=== PATIENT | male | born 1965 | race Caucasian/White ===

== ENCOUNTER 2019-04-20 16:47 | Inpatient (IN) ==
[2019-04-20] MEDS ORDERED: 0.9 % Sodium Chloride 1,000 ML IVC ONE (16:53)
[2019-04-20] MEDS ORDERED: Pantoprazole 40 MG VIAL IVP ONE (16:53)
[2019-04-20] MEDS ORDERED: *HR* LORazepam 2 MG/ML VIAL IVP ONE ×2 (17:06→18:40)
[2019-04-20] MEDS ORDERED: *HR* LORazepam 2 MG/ML VIAL ONE (17:06)
[2019-04-20 17:19] LABS: Basophils % 0.2 %; Eosinophils % 0.1 %; Hematocrit 30.5 % (37.5-50.1); Hemoglobin 10.6 g/dL (12.9-16.9); Immature Granulocytes % 1.2 % (0-4); Lymphocytes # 1.5 K/mcL (0.6-4.6); Lymphocytes % 11.4 %; Mean Corpuscular HGB Conc 34.8 g/dL (31.6-35.5); Mean Corpuscular Hemoglobin 28.8 pg (28.0-33.3); Mean Corpuscular Volume 82.9 fL (83.0-100.0); Mean Platelet Volume 10.8 fL (9.4-12.4); Monocytes # 1.4 K/mcL (0.0-1.3); Monocytes % 10.3 %; Neutrophils # 10.3 K/mcL (1.6-8.9); Platelet Count 214 K/mcL (140-400); Red Blood Count 3.68 M/mcL (4.19-5.50); Red Cell Distribution Width 12.3 % (11.5-14.5); Segmented Neutrophils % 76.8 %; White Blood Count 13.4 K/mcL (4.3-11.1)
[2019-04-20 17:20] LABS: INR 1.1; Prothrombin Time 12.2 Seconds (9.4-12.1)
[2019-04-20 17:23] LABS: Activated Partial Thrombo Time 26.6 Seconds (26.0-36.0)
[2019-04-20 17:36] LABS: Acetaminophen < 10 mcg/mL (10-20); BUN/Creatinine Ratio 15 (6-26); Blood Urea Nitrogen 10 mg/dL (6-20); Calcium 8.2 mg/dL (8.6-10.3); Carbon Dioxide 27 mEq/L (23-29); Chloride 83 mEq/L (98-107); Ethanol < 10 mg/dL (Less than 10); Glucose 122 mg/dL (70-105); Lipase 30 Units/L (11-82); Magnesium 1.7 mg/dL (1.6-2.6); Osmolality,Calculated 252 (280-300); Potassium 2.9 mEq/L (3.5-5.1); Salicylate < 2.5 mg/dL (15.0-30.0); Sodium 121 mEq/L (136-145); Troponin I < 0.03 ng/mL (< 0.04); eGFR For African Americans > 60 (> 60); eGFR For Non-African Americans > 60 (> 60)
[2019-04-20 19:01] LABS: Amphetamine Screen,Urine Negative ng/mL (Cutoff=1000); Barbiturate Screen,Urine Negative ng/mL (Cutoff=200); Benzodiazepines Screen,Urine Negative ng/mL (Cutoff=200); Cannabinoid Screen,Urine Negative ng/mL (Cutoff = 50); Cocaine Screen,Urine Negative ng/mL (Cutoff= 300); Opiate Screen,Urine Negative ng/mL (Cutoff=300); Phencyclidine Screen,Urine Negative ng/mL (Cutoff=25)
[2019-04-20] MEDS ORDERED: MetroNIDAZOLE 500 MG/100 ML 500 MG/100 ML BAG IVPB ONE (19:13)
[2019-04-20 20:13] LABS: Bilirubin,Urine Negative (Negative); Blood,Urine Negative (Negative); Clarity,Urine Clear (Clear); Color,Urine Yellow (Yellow); Glucose,Urine (UA) Normal (Normal); Ketones,Urine Negative (Negative); Leukocyte Esterase,Urine Negative (Negative); Nitrite,Urine Negative (Negative); Protein,Urine Negative (Neg-Trace); Specific Gravity,Urine 1.006 (1.010-1.025); Urobilinogen,Urine Normal (Normal)
[2019-04-20] MEDS ORDERED: Naloxone 0.4 MG/ML INJ IVP PRN (22:22)
[2019-04-20] MEDS ORDERED: *HR* LORazepam 2 MG/ML VIAL IVP PRN (22:25)
[2019-04-20 22:52] LABS: BUN/Creatinine Ratio 9 (6-26); Blood Urea Nitrogen 7 mg/dL (6-20); Calcium 7.7 mg/dL (8.6-10.3); Carbon Dioxide 26 mEq/L (23-29); Chloride 92 mEq/L (98-107); Glucose 118 mg/dL (70-105); Osmolality,Calculated 263 (280-300); Potassium 2.8 mEq/L (3.5-5.1); Sodium 127 mEq/L (136-145); eGFR For African Americans > 60 (> 60); eGFR For Non-African Americans > 60 (> 60)
[2019-04-20] MEDS ORDERED: D5% in Water 1,000 ML IVC SCH (23:15)
[2019-04-20] MEDS ORDERED: Potassium Chloride 40 MEQ, Lidocaine 1% 2 ML in 0.9 % Sodium Chloride 500 ML IVPB ONE (23:30)
[2019-04-21] MEDS: MetroNIDAZOLE 500 MG/100 ML 500 MG/100 ML BAG IVPB SCH ×3 (04:50→20:18)
[2019-04-21] MEDS: Pantoprazole 40 MG VIAL IVP SCH ×2 (05:47→18:13)
[2019-04-21 06:14] LABS: Hematocrit 27.9 % (37.5-50.1); Hemoglobin 9.7 g/dL (12.9-16.9); Mean Corpuscular HGB Conc 34.8 g/dL (31.6-35.5); Mean Corpuscular Hemoglobin 29.2 pg (28.0-33.3); Platelet Count 178 K/mcL (140-400); Red Blood Count 3.32 M/mcL (4.19-5.50); Red Cell Distribution Width 12.5 % (11.5-14.5); White Blood Count 6.1 K/mcL (4.3-11.1)
[2019-04-21 06:24] LABS: Alanine Aminotransferase 131 Units/L (7-52); Albumin 3.4 g/dL (3.5-5.7); Albumin/Globulin Ratio 1.6 (1.1-2.2); Alkaline Phosphatase 49 Units/L (34-104); Aspartate Amino Transferase 113 Units/L (13-39); BUN/Creatinine Ratio 7 (6-26); Bilirubin,Total 0.9 mg/dL (0.3-1.0); Blood Urea Nitrogen 6 mg/dL (6-20); Calcium 8.1 mg/dL (8.6-10.3); Carbon Dioxide 27 mEq/L (23-29); Chloride 102 mEq/L (98-107); Globulin 2.1 g/dL (2.4-3.5); Glucose 120 mg/dL (70-105); Osmolality,Calculated 277 (280-300); Phosphorous 1.8 mg/dL (2.7-4.5); Potassium 3.5 mEq/L (3.5-5.1); Sodium 134 mEq/L (136-145); Total Protein 5.5 g/dL (6.4-8.9); eGFR For African Americans > 60 (> 60); eGFR For Non-African Americans > 60 (> 60)
[2019-04-21 08:12] LABS: BUN/Creatinine Ratio 7 (6-26); Blood Urea Nitrogen 6 mg/dL (6-20); Calcium 8.1 mg/dL (8.6-10.3); Carbon Dioxide 27 mEq/L (23-29); Chloride 102 mEq/L (98-107); Glucose 159 mg/dL (70-105); Osmolality,Calculated 279 (280-300); Potassium 3.3 mEq/L (3.5-5.1); Sodium 134 mEq/L (136-145); eGFR For African Americans > 60 (> 60); eGFR For Non-African Americans > 60 (> 60)
[2019-04-21] MEDS: *HR* LORazepam 2 MG/ML VIAL IVP PRN (09:29)
[2019-04-21] MEDS: D5% in Water 1,000 ML IVC SCH ×2 (10:14→16:33)
[2019-04-21] MEDS ORDERED: D5% in Water 1,000 ML IVC SCH (11:45)
[2019-04-21] MEDS ORDERED: D5% in Water 500 ML IVC SCH (13:00)
[2019-04-21 13:58] LABS: BUN/Creatinine Ratio 5 (6-26); Blood Urea Nitrogen 5 mg/dL (6-20); Carbon Dioxide 25 mEq/L (23-29); Chloride 102 mEq/L (98-107); Glucose 180 mg/dL (70-105); Osmolality,Calculated 278 (280-300); Potassium 3.3 mEq/L (3.5-5.1); Sodium 133 mEq/L (136-145); eGFR For African Americans > 60 (> 60); eGFR For Non-African Americans > 60 (> 60)
[2019-04-21] MEDS: Gabapentin 300 MG CAPSULE PO SCH ×2 (14:28→20:18)
[2019-04-21] MEDS: Thiamine (B-1) 100 MG, Folic Acid 1 MG, MVI, adult with vitamin K 10 ML in 0.9 % Sodi... IVPB SCH (18:26)
[2019-04-21] MEDS ORDERED: *HR* LORazepam 1 MG TABLET PO SCH (19:45)
[2019-04-21] MEDS: Nicotine 21 MG PATCH.TD24 TD SCH (20:17)
[2019-04-21] MEDS: Primidone 50 MG TABLET PO SCH (20:17)
[2019-04-21] MEDS: Melatonin 3 MG TABLET PO SCH (20:18)
[2019-04-22] MEDS: D5% in Water 1,000 ML IVC SCH ×2 (01:00→05:06)
[2019-04-22 01:39] LABS: Hematocrit 28.1 % (37.5-50.1); Hemoglobin 9.8 g/dL (12.9-16.9); Mean Corpuscular HGB Conc 34.9 g/dL (31.6-35.5); Mean Corpuscular Hemoglobin 29.8 pg (28.0-33.3); Mean Corpuscular Volume 85.4 fL (83.0-100.0); Mean Platelet Volume 11.2 fL (9.4-12.4); Platelet Count 179 K/mcL (140-400); Red Blood Count 3.29 M/mcL (4.19-5.50); Red Cell Distribution Width 12.9 % (11.5-14.5)
[2019-04-22 01:42] LABS: White Blood Count 9.5 K/mcL (4.3-11.1)
[2019-04-22 01:58] LABS: % Iron Saturation 6 % (20-55); Alanine Aminotransferase 125 Units/L (7-52); Albumin 3.6 g/dL (3.5-5.7); Albumin/Globulin Ratio 1.7 (1.1-2.2); Alkaline Phosphatase 51 Units/L (34-104); Aspartate Amino Transferase 68 Units/L (13-39); BUN/Creatinine Ratio 5 (6-26); Bilirubin,Total 0.4 mg/dL (0.3-1.0); Blood Urea Nitrogen 5 mg/dL (6-20); Calcium 8.1 mg/dL (8.6-10.3); Carbon Dioxide 24 mEq/L (23-29); Chloride 105 mEq/L (98-107); Globulin 2.1 g/dL (2.4-3.5); Glucose 112 mg/dL (70-105); Iron 19 mcg/dL (65-175); Osmolality,Calculated 282 (280-300); Potassium 3.1 mEq/L (3.5-5.1); Sodium 137 mEq/L (136-145); Total Protein 5.7 g/dL (6.4-8.9); Transferrin 213 mg/dL (203-362); eGFR For African Americans > 60 (> 60); eGFR For Non-African Americans > 60 (> 60)
[2019-04-22 02:28] LABS: Folate > 22.3 ng/mL (3.0-16.0); Vitamin B12 736 pg/mL (250-1100)
[2019-04-22 03:08] LABS: Ferritin 250 ng/mL (20-250)
[2019-04-22] MEDS: MetroNIDAZOLE 500 MG/100 ML 500 MG/100 ML BAG IVPB SCH ×3 (05:02→20:17)
[2019-04-22] MEDS: Pantoprazole 40 MG VIAL IVP SCH ×2 (06:07→17:27)
[2019-04-22] MEDS: Nicotine 21 MG PATCH.TD24 TD SCH (09:32)
[2019-04-22] MEDS: Loratadine 10 MG TABLET PO SCH (09:33)
[2019-04-22] MEDS: Aspirin Enteric Coated 81 MG Tablet PO SCH (09:33)
[2019-04-22] MEDS: Gabapentin 300 MG CAPSULE PO SCH ×3 (09:33→20:16)
[2019-04-22] MEDS: *HR* LORazepam 2 MG/ML VIAL IVP PRN ×3 (09:33→17:30)
[2019-04-22] MEDS: Thiamine (B-1) 100 MG, Folic Acid 1 MG, MVI, adult with vitamin K 10 ML in 0.9 % Sodi... IVPB SCH (18:17)
[2019-04-22] MEDS: Primidone 50 MG TABLET PO SCH (20:16)
[2019-04-22] MEDS: Melatonin 3 MG TABLET PO SCH (20:16)
[2019-04-23] MEDS: MetroNIDAZOLE 500 MG/100 ML 500 MG/100 ML BAG IVPB SCH ×3 (03:05→20:39)
[2019-04-23] MEDS: Pantoprazole 40 MG VIAL IVP SCH ×2 (05:45→17:17)
[2019-04-23 05:58] LABS: Basophils # 0.1 K/mcL (0.0-0.2); Basophils % 1.1 %; Eosinophils # 0.6 K/mcL (0.0-0.6); Eosinophils % 7.4 %; Hematocrit 29.3 % (37.5-50.1); Hemoglobin 9.4 g/dL (12.9-16.9); Immature Granulocytes % 1.9 % (0-4); Lymphocytes # 2.2 K/mcL (0.6-4.6); Lymphocytes % 26.1 %; Mean Corpuscular HGB Conc 32.1 g/dL (31.6-35.5); Mean Corpuscular Hemoglobin 28.7 pg (28.0-33.3); Mean Corpuscular Volume 89.3 fL (83.0-100.0); Mean Platelet Volume 11.3 fL (9.4-12.4); Monocytes # 0.9 K/mcL (0.0-1.3); Monocytes % 10.8 %; Neutrophils # 4.5 K/mcL (1.6-8.9); Platelet Count 188 K/mcL (140-400); Red Blood Count 3.28 M/mcL (4.19-5.50); Red Cell Distribution Width 13.5 % (11.5-14.5); Segmented Neutrophils % 52.7 %; White Blood Count 8.4 K/mcL (4.3-11.1)
[2019-04-23 06:31] LABS: BUN/Creatinine Ratio 10 (6-26); Blood Urea Nitrogen 9 mg/dL (6-20); Calcium 8.1 mg/dL (8.6-10.3); Carbon Dioxide 26 mEq/L (23-29); Chloride 108 mEq/L (98-107); Glucose 110 mg/dL (70-105); Osmolality,Calculated 287 (280-300); Potassium 3.8 mEq/L (3.5-5.1); Sodium 139 mEq/L (136-145); eGFR For African Americans > 60 (> 60); eGFR For Non-African Americans > 60 (> 60)
[2019-04-23] MEDS: Nicotine 21 MG PATCH.TD24 TD SCH (09:19)
[2019-04-23] MEDS: Loratadine 10 MG TABLET PO SCH (09:20)
[2019-04-23] MEDS: Gabapentin 300 MG CAPSULE PO SCH ×3 (09:20→20:39)
[2019-04-23] MEDS: Aspirin Enteric Coated 81 MG Tablet PO SCH (09:20)
[2019-04-23] MEDS: Cholecalciferol (D-3) 1,000 UNIT (25MCG) TABLET PO SCH (11:29)
[2019-04-23] MEDS ORDERED: *HR* Propofol 200 MG/20 ML VIAL IVP ONE (12:52)
[2019-04-23] MEDS ORDERED: Lidocaine -MPF 2% 2 ML VIAL ONE (12:52)
[2019-04-23 13:59] LABS: Hepatitis B Surface Antigen Nonreactive (Nonreactive)
[2019-04-23 14:28] LABS: Hepatitis C Virus Antibody Nonreactive (Nonreactive)
[2019-04-23 14:29] LABS: Hepatitis A Antibody IgM Nonreactive (Nonreactive); Hepatitis B Core IgM Nonreactive (Nonreactive)
[2019-04-23] MEDS: Thiamine (B-1) 100 MG, Folic Acid 1 MG, MVI, adult with vitamin K 10 ML in 0.9 % Sodi... IVPB SCH (18:51)
[2019-04-23] MEDS: Primidone 50 MG TABLET PO SCH (20:39)
[2019-04-23] MEDS: Melatonin 3 MG TABLET PO SCH (20:39)
[2019-04-23] MEDS: *HR* LORazepam 2 MG/ML VIAL IVP PRN (22:25)
[2019-04-24] MEDS: MetroNIDAZOLE 500 MG/100 ML 500 MG/100 ML BAG IVPB SCH (05:24)
[2019-04-24] MEDS: Pantoprazole 40 MG VIAL IVP SCH (05:27)
[2019-04-24 07:11] LABS: Basophils # 0.1 K/mcL (0.0-0.2); Basophils % 1.1 %; Eosinophils # 0.7 K/mcL (0.0-0.6); Eosinophils % 8.4 %; Hematocrit 30.5 % (37.5-50.1); Hemoglobin 10.2 g/dL (12.9-16.9); Immature Granulocytes % 1.9 % (0-4); Lymphocytes # 2.3 K/mcL (0.6-4.6); Lymphocytes % 25.9 %; Mean Corpuscular HGB Conc 33.4 g/dL (31.6-35.5); Mean Corpuscular Hemoglobin 29.1 pg (28.0-33.3); Mean Corpuscular Volume 86.9 fL (83.0-100.0); Mean Platelet Volume 10.9 fL (9.4-12.4); Monocytes % 11.2 %; Neutrophils # 4.5 K/mcL (1.6-8.9); Platelet Count 234 K/mcL (140-400); Red Blood Count 3.51 M/mcL (4.19-5.50); Red Cell Distribution Width 14.2 % (11.5-14.5); Segmented Neutrophils % 51.5 %; White Blood Count 8.8 K/mcL (4.3-11.1)
[2019-04-24 07:30] LABS: BUN/Creatinine Ratio 8 (6-26); Blood Urea Nitrogen 7 mg/dL (6-20); Calcium 8.4 mg/dL (8.6-10.3); Carbon Dioxide 27 mEq/L (23-29); Chloride 105 mEq/L (98-107); Glucose 111 mg/dL (70-105); Osmolality,Calculated 285 (280-300); Potassium 3.6 mEq/L (3.5-5.1); Sodium 138 mEq/L (136-145); eGFR For African Americans > 60 (> 60); eGFR For Non-African Americans > 60 (> 60)
[2019-04-24] MEDS: Nicotine 21 MG PATCH.TD24 TD SCH (09:00)
[2019-04-24] MEDS: Vitamin B Complex/Vit C/Vit E 1 EACH TABLET PO SCH (09:01)
[2019-04-24] MEDS: Folic Acid 1 MG TABLET PO SCH (09:01)
[2019-04-24] MEDS: Aspirin Enteric Coated 81 MG Tablet PO SCH (09:01)
[2019-04-24] MEDS: Thiamine (B-1) 100 MG TABLET PO SCH (09:01)
[2019-04-24] MEDS: Cholecalciferol (D-3) 1,000 UNIT (25MCG) TABLET PO SCH (09:01)
[2019-04-24] MEDS: Multivit/Ca/Min/Fe/FA 1 TAB TABLET PO SCH (09:01)
[2019-04-24] MEDS: Gabapentin 300 MG CAPSULE PO SCH ×3 (09:01→20:17)
[2019-04-24] MEDS: Loratadine 10 MG TABLET PO SCH (09:01)
[2019-04-24] MEDS: *HR* LORazepam 2 MG/ML VIAL IVP PRN ×2 (09:19→13:15)
[2019-04-24] MEDS: metroNIDAZOLE 500 MG TABLET PO SCH ×2 (13:15→20:17)
[2019-04-24] MEDS: Primidone 50 MG TABLET PO SCH (20:17)
[2019-04-24] MEDS: Melatonin 3 MG TABLET PO SCH (20:17)
[2019-04-25] MEDS: Vitamin B Complex/Vit C/Vit E 1 EACH TABLET PO SCH (08:42)
[2019-04-25] MEDS: Folic Acid 1 MG TABLET PO SCH (08:42)
[2019-04-25] MEDS: Thiamine (B-1) 100 MG TABLET PO SCH (08:42)
[2019-04-25] MEDS: Cholecalciferol (D-3) 1,000 UNIT (25MCG) TABLET PO SCH (08:42)
[2019-04-25] MEDS: Aspirin Enteric Coated 81 MG Tablet PO SCH (08:42)
[2019-04-25] MEDS: Loratadine 10 MG TABLET PO SCH (08:42)
[2019-04-25] MEDS: Multivit/Ca/Min/Fe/FA 1 TAB TABLET PO SCH (08:42)
[2019-04-25] MEDS: Nicotine 21 MG PATCH.TD24 TD SCH (08:42)
[2019-04-25] MEDS: Gabapentin 300 MG CAPSULE PO SCH ×3 (08:42→20:50)
[2019-04-25] MEDS: metroNIDAZOLE 500 MG TABLET PO SCH ×3 (08:42→20:50)
[2019-04-25 10:34] LABS: AFP Tumor Marker Non-Pregnant 2 ng/mL (0-9)
[2019-04-25 10:45] LABS: ANA IgG by ELISA NONE DETECTED (None Detected)
[2019-04-25 10:46] LABS: F-Actin (sm muscle) Ab IgG 3 Units (0-19); Serine Protease-3 Antibody 1 AU/mL (0-19)
[2019-04-25] MEDS: hydrOXYzine pamoate 25 MG CAPSULE PO PRN (16:38)
[2019-04-25] MEDS: Melatonin 3 MG TABLET PO SCH (20:50)
[2019-04-26] MEDS: Primidone 50 MG TABLET PO SCH (00:09)
[2019-04-26 08:28] LABS: Basophils # 0.1 K/mcL (0.0-0.2); Basophils % 1.1 %; Eosinophils # 0.6 K/mcL (0.0-0.6); Eosinophils % 7.5 %; Hematocrit 28.9 % (37.5-50.1); Hemoglobin 9.4 g/dL (12.9-16.9); Immature Granulocytes % 2.3 % (0-4); Lymphocytes # 1.5 K/mcL (0.6-4.6); Lymphocytes % 20.1 %; Mean Corpuscular HGB Conc 32.5 g/dL (31.6-35.5); Mean Corpuscular Hemoglobin 28.5 pg (28.0-33.3); Mean Corpuscular Volume 87.6 fL (83.0-100.0); Mean Platelet Volume 10.7 fL (9.4-12.4); Monocytes # 1.3 K/mcL (0.0-1.3); Neutrophils # 3.9 K/mcL (1.6-8.9); Platelet Count 265 K/mcL (140-400); Red Cell Distribution Width 14.1 % (11.5-14.5); White Blood Count 7.4 K/mcL (4.3-11.1)
[2019-04-26] MEDS: Folic Acid 1 MG TABLET PO SCH (08:47)
[2019-04-26] MEDS: Multivit/Ca/Min/Fe/FA 1 TAB TABLET PO SCH (08:47)
[2019-04-26] MEDS: Aspirin Enteric Coated 81 MG Tablet PO SCH (08:47)
[2019-04-26] MEDS: Loratadine 10 MG TABLET PO SCH (08:47)
[2019-04-26] MEDS: Gabapentin 300 MG CAPSULE PO SCH ×2 (08:47→15:45)
[2019-04-26] MEDS: metroNIDAZOLE 500 MG TABLET PO SCH ×3 (08:48→18:28)
[2019-04-26] MEDS: Thiamine (B-1) 100 MG TABLET PO SCH (08:48)
[2019-04-26] MEDS: Nicotine 21 MG PATCH.TD24 TD SCH (08:48)
[2019-04-26] MEDS: Cholecalciferol (D-3) 1,000 UNIT (25MCG) TABLET PO SCH (08:48)
[2019-04-26 08:50] LABS: BUN/Creatinine Ratio 8 (6-26); Blood Urea Nitrogen 8 mg/dL (6-20); Calcium 8.3 mg/dL (8.6-10.3); Carbon Dioxide 27 mEq/L (23-29); Chloride 107 mEq/L (98-107); Glucose 90 mg/dL (70-105); Osmolality,Calculated 284 (280-300); Potassium 3.7 mEq/L (3.5-5.1); Sodium 138 mEq/L (136-145); eGFR For African Americans > 60 (> 60); eGFR For Non-African Americans > 60 (> 60)
[2019-04-26] MEDS ORDERED: *HR* LORazepam 2 MG/ML VIAL IVP PRN (10:25)
[2019-04-26] MEDS: hydrOXYzine pamoate 25 MG CAPSULE PO PRN (11:40)
[2019-04-26 15:55] VITALS: BP 127/79
== END 2019-04-26 18:31 | disposition home or self-care (01) | DRG 378 ==
LOC: EMEROOARM 16:47 → 3ANU 16:47 → SUATTDRO 22:29
PROVIDERS: ADMIT Internal Medicine; ATTEND Family Medicine
PROC: ENDOEBX (2019-04-23 13:00)